=== PATIENT | male | born 1960 | race Caucasian/White ===

== ENCOUNTER 2017-08-05 14:52 | Outpatient (CLI) | payer OTHER | END 2017-08-05 16:16 | disposition home or self-care (01) | LOC: DCC 14:52 | DX: E11.649 Type 2 diabetes mellitus with hypoglycemia without coma (principal); R10.9 Unspecified abdominal pain; E11.319 Type 2 diabetes mellitus with unspecified diabetic retinopathy without macular edema | CPT/HCPCS: G0463 ==

== ENCOUNTER 2017-08-16 14:03 | Outpatient (CLI) | payer OTHER | END 2017-08-16 15:43 | disposition home or self-care (01) | LOC: DCC 14:03 | DX: E11.8 Type 2 diabetes mellitus with unspecified complications (principal); I10 Essential (primary) hypertension; N28.9 Disorder of kidney and ureter, unspecified; Z88.0 Allergy status to penicillin; Z79.4 Long term (current) use of insulin | CPT/HCPCS: G0463 ==